=== PATIENT | female | born 1965 | race Caucasian/White ===

== ENCOUNTER → 2017-01-10 | Outpatient (CLI) | payer BC ==
[2017-01-10 08:32] LABS: RED BLOOD COUNT 4.89 10^6/uL (4.20-5.40)
[2017-01-10 08:33] LABS: BASOPHILS % (AUTO) 0.7 % (0-1); EOSINOPHILS % (AUTO) 0.7 % (0-8); HEMATOCRIT 41.9 % (37.0-47.0); HEMOGLOBIN 14.9 g/dL (12.0-16.0); MEAN CORPUSCULAR HEMOGLOBIN 30.5 PG (27-31); MEAN CORPUSCULAR HGB CONC 35.6 g/dL (33-37); MEAN CORPUSCULAR VOLUME 85.7 FL (81-99); MEAN PLATELET VOLUME 8.4 FL (7.4-12.2); MONOCYTES % (AUTO) 10.8 % (5-15); NEUTROPHILS # (AUTO) 2.39 10*3/UL
[2017-01-10 08:34] LABS: BASOPHILS # (AUTO) 0.03 10*3/UL; EOSINOPHILS # (AUTO) 0.03 10*3/UL; MONOCYTES # (AUTO) 0.47 10*3/UL (0.3-0.8); PLATELET MORPHOLOGY COMMENT NORMAL MORPHOLOGY (NORM); RBC MORPHOLOGY COMMENT NORMAL MORPHOLOGY (NORM); WBC MORPHOLOGY COMMENT NORMAL MORPHOLOGY (NORM)
[2017-01-10 09:01] LABS: BLOOD UREA NITROGEN 18 mg/dL (7-22); CALCIUM 9.6 mg/dL (8.7-10.7); EST GLOMERULAR FILTRATION > 60 (>60 ml/min/1.73m(2)); SERUM ALBUMIN 4.4 g/dL (3.5-4.8)
[2017-01-14 07:07] LABS: CA 27.29(BREAST CA ASSOC AG) 28.3 U/mL (<=38.0)
== END ==
LOC: LAB 07:46
PROVIDERS: ATTEND Physician Assistant Medical
DX: C50.919 Malignant neoplasm of unspecified site of unspecified female breast (principal); E55.9 Vitamin D deficiency, unspecified
CPT/HCPCS: 36415; 80053; 82306; 82378; 85025; 86300